=== PATIENT | male | born 1945 | race Caucasian/White ===

== ENCOUNTER 2017-08-17 11:31 | Day surgery (SDC) | payer MEDICARE, OTHER ==
[2017-08-16 12:15] VITALS: BMI 26.4
[2017-08-17] MEDS ORDERED: Midazolam HCl 2 mg/2 ml Vial ONE (13:46)
[2017-08-17] MEDS ORDERED: Lidocaine 1% PF 5 ML VIAL ONE (13:55)
[2017-08-17] MEDS ORDERED: ePHEDrine/0.9% NaCl/PF SYRINGE 50 mg/10 ml ONE (13:55)
[2017-08-17] MEDS ORDERED: Propofol 200 MG/20 ML VIAL ONE (13:55)
--- NOTE | 2017-08-17 15:55 | MRI ---
MR CERVICAL SPINE WITHOUT CONTRAST 08/17/17 INDICATION: Bilateral hand numbness for one month. COMPARISON: Radiograph dated 07/14/17. FINDINGS: Prevertebral soft tissues are normal appearing. The visualized posterior fossa is unremarkable. There is slight anterior translation of C2 on C3 which is likely degenerative in nature. There is mod erate and mild left facet joint degenerative change. There is left vertebral hypertrophy present. The re is mild right neural foraminal narrowing. At C3-4, There is a disc osteophyte complex with uncovertebral hypertrophy and facet joint degenerat dannielle change inducing severe left and moderate to severe right neural foraminal narrowing. At C4-5, there is anterior translation of C4 on C5. There is uncovertebral hypertrophy and facet join t degenerative change. Motion artifact heavily limits image detail in the axial images at this level. There is suspected severe bilateral neural foraminal narrowing, left greater than right due to uncov ertebral hypertrophy and facet joint degenerative change. At C5-6, there is a broad based bulge with uncovertebral hypertrophy and facet joint degenerative nova nge inducing severe bilateral neural foraminal narrowing and mild central canal narrowing. At C6-7, there is disc osteophyte complex with facet joint degenerative change inducing moderate bila teral neural foraminal narrowing and mild central canal narrowing. At C7-T1, there is mild anterior translation of C7 on T1. There is at least mild bilateral neural for aminal narrowing due to facet joint hypertrophy. IMPRESSION: 1. Multilevel neural foraminal narrowing demonstrated as detailed above. 2. Mild central canal narrowing seen at C5-6 and C6-7. POS: [facility]
== END 2017-08-17 16:15 | disposition home or self-care (01) ==
LOC: SDC/OP 11:31
PROVIDERS: ATTEND Neurological Surgery
DX: M50.00 Cervical disc disorder with myelopathy, unspecified cervical region (principal); M47.12 Other spondylosis with myelopathy, cervical region; M48.02 Spinal stenosis, cervical region; I10 Essential (primary) hypertension; I25.10 Atherosclerotic heart disease of native coronary artery without angina pectoris; F17.210 Nicotine dependence, cigarettes, uncomplicated; G56.00 Carpal tunnel syndrome, unspecified upper limb; Z79.82 Long term (current) use of aspirin; Z79.899 Other long term (current) drug therapy
CPT/HCPCS: 72141; J2001; J2250; J2704

== ENCOUNTER 2017-11-11 12:49 | Day surgery (SDC) | payer MEDICARE, OTHER ==
[2017-11-10 09:33] VITALS: BMI 26.4
--- NOTE | 2017-11-11 13:26 | HP ---
REASON FOR ADMISSION: Left carpal tunnel release, left ulnar nerve decompression with transposition. HISTORY OF PRESENT ILLNESS: Mr. 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 EMG nerve conduction studies revealed moderate to severe carpal tunnel and ulnar neuropathy at the elbow. The left arm is more symptomatic than the right and the EMG/nerve conduction studies support this. He is here for a decompression and transposition of the ulnar nerv e at the left elbow and carpal tunnel release on the left wrist. PAST MEDICAL HISTORY: Hypertension, hyperlipidemia, atherosclerosis including coronary artery diseas e, gastroesophageal reflux. PAST SURGICAL HISTORY: Carotid artery surgery, carotid stenting, coronary artery bypass graft, and l ens implants. MEDICATIONS: Include naproxen, folic acid, metoprolol, lisinopril, furosemide, Plavix, simvastatin, potassium chloride, and aspirin. ALLERGIES: No known drug allergies. SOCIAL HISTORY: Mr. Negrete was a smoker and continues to smoke at least for the last 20 years. He drinks 2-3 drinks of vodka every night. He is retired. He is . FAMILY HISTORY: Father is , colon cancer. Mother had cancer as well. REVIEW OF SYSTEMS: Otherwise negative. PHYSICAL EXAMINATION: GENERAL: Mr. Negrete is awake, alert. He is oriented. NEUROLOGIC: Cranial nerves are functioning well. His receptive and expressive language function are normal. His cognitive function is normal. Alternating rapid motions are performed rapidly and smoo thly. There is no truncal ataxia. There is some subjective hand weakness and numbness on both sides ; however, he has good strength against resistance. Reflexes are normal. The toes are downgoing. G ait is off balanced on tandem gait testing. IMAGING FINDINGS AND TEST RESULTS. Nerve conduction studies suggest a slowing of ulnar nerve conduct ion at the elbow and median nerve at the wrist. ASSESSMENT: Left ulnar neuropathy at the elbow, left carpal tunnel syndrome. PLAN: Decompression and transposition of the left ulnar nerve and decompression of left carpal tunne l. After surgery, he is to keep his arm elevated for the next 36 hours on Wednesday morning, 11/13/2017, dressings can be removed. Thereafter, he can shower. If soap and water get on the incision, should be patted dry. Aspirin can be restarted in 1 week and Plavix in 2 weeks after surgery. Follow up arrangements will be made by scheduling coordinators. Please give the copy of this admission history and physical with the discharge instructions highlight ed.
[2017-11-11 14:22] LABS: PTT 28.7 SEC (22.9-36.1); Prothrombin Time 13.4 SEC (12.0-14.7)
[2017-11-11] MEDS ORDERED: Lidocaine 1% PF 5 ML VIAL ONE (14:35)
[2017-11-11] MEDS ORDERED: PHENYLEPHRINE-NS 100 MCG/ML 10 ML SYRINGE ONE (14:35)
[2017-11-11] MEDS ORDERED: PROPOFOL 200 MG/20 ML VIAL ONE (14:35)
[2017-11-11] MEDS ORDERED: Ondansetron HCl/PF 4 MG/2 ML Vial ONE (14:35)
[2017-11-11 14:51] LABS: #Basophils 0.1 thou/uL (0.0-0.2); #Eosinphils 0.1 thou/uL (0.0-0.7); #Lymphocytes 1.7 thou/uL (1.20-3.40); #Monocytes 0.6 thou/uL (0.11-0.59); #Neutrophils 3.5 thou/uL (1.40-6.50); %Basophils 0.9 % (0.0-1.0); %Eosinophils 1.1 % (0.0-10.0); %Lymphocytes 28.4 % (21.0-51.0); %Monocytes 9.5 % (0.0-10.0); %Neutrophils 60.1 % (42.0-75.0); Hemoglobin 13.5 g/dL (14.0-18.0); MDiff Complete? YES; Macrocytosis SLIGHT = 6-15 cells (100X) (0-5/hpf); Mean Corpuscular HGB CONC 34.1 g/dL (32.0-36.0); Mean Corpuscular Hemoglobin 37.8 pg (27.0-31.0); Mean Platelet Volume 8.6 fL (7.4-10.4); PLT Morphology Comment Appears Decreased; Platelet Count 104 thou/uL (130-400); RBC Distribution Width 11.9 % (11.5-14.5); Red Blood Cell (RBC) Count 3.56 mill/uL (4.70-6.10); White Blood Cell (WBC) Count 5.9 thou/uL (4.8-10.8)
[2017-11-11] MEDS ORDERED: CEFAZOLIN/Water 2 GM/20 ML SYRINGE ONE ×2 (14:54→21:02)
[2017-11-11] MEDS ORDERED: Bacitracin Zinc Ointment 30 gm TUBE ONE (16:10)
[2017-11-11] MEDS ORDERED: Sodium Chloride 0.9% 10 ML ONE (16:10)
[2017-11-11] MEDS ORDERED: Lidocaine 1% (PF) 30 ML VIAL ONE (16:10)
[2017-11-11] MEDS ORDERED: Fentanyl 100 MCG/2 ML VIAL ONE (16:54)
[2017-11-11] MEDS ORDERED: Promethazine HCl 12.5 MG SUPP PR PRN (19:14)
[2017-11-11] MEDS ORDERED: Ondansetron HCl/PF 4 MG/2 ML Vial IVP PRN (19:14)
[2017-11-11] MEDS ORDERED: Acetaminophen/Codeine 30-300mg Tablet PO PRN ×2 (19:14)
[2017-11-11] MEDS ORDERED: Promethazine 25 MG TAB PO PRN (19:14)
[2017-11-11] MEDS ORDERED: Promethazine HCl 25 MG/ML VIAL IM PRN (19:14)
[2017-11-11] MEDS ORDERED: HYDROcodone/Acetaminophen 5/325 mg Tablet ONE (20:29)
[2017-11-11] MEDS ORDERED: CEFAZOLIN/Water 2 GM/20 ML SYRINGE SLOW IVP SCH (22:00)
--- NOTE | 2017-11-11 22:03 | OP ---
DATE OF PROCEDURE: 11/11/2017 SURGEON: Elizabeth Shearer M.D. GROUP UNDERWRITER: AMOS Sauer. PREOPERATIVE INDICATION: Prevent neurological deterioration. PREOPERATIVE DIAGNOSES: Ulnar neuropathy at the elbow and carpal tunnel syndrome, left side. POSTOPERATIVE DIAGNOSES: Ulnar neuropathy at the elbow and carpal tunnel syndrome, left side. OPERATIVE PROCEDURE: Decompression with subcutaneous transposition of left ulnar nerve at the elbow, carpal tunnel release, left wrist. PREOPERATIVE MEDICATION: Ancef 2 grams IV. DRAIN NUMBER: Zero. DRAIN TYPE: None. PROCEDURE IN DETAIL: The patient was brought to the operating room. General LMA anesthesia was stormy eze. We cleansed the arm and plantar curvilinear incision over the cubital tunnel extending into the forearm and proximally into the arm as well as an incision from the distal palmar crease into the pa lm in line with the webspace between the ring and middle finger. Under the planned incisions, we inf used local anesthetic. The entire arm was sterilely prepped and draped. We started with the elbow s urgery and opened our curvilinear incision and controlled the bleeding with bipolar cautery. We diss ected sharply to the cubital tunnel and found the ulnar nerve. We placed a vessel loop around it and dissected proximally and distally. We dissected enough nerve, so that could be easily transposed ov er the elbow. We had to cut the intermuscular septum off the proximal portion of the elbow joint to allow for smooth transposition. Distally we made a small notch in the fascia of the flexor carpi uln kaylen for a smooth transition back to the wilton side for the ulnar nerve. We irrigated copiously wit h bacitracin irrigation. We held the nerve in transposed position by tacking down subcutaneous fat t o the medial epicondyle and placed a Keasbey 4 dissector through the transposed tunnel we had create d and there was no impingement. We extended and flexed the arm and the nerve looked quite soft and s upple of the unit for its entire root at the elbow. We irrigated once again with bacitracin irrigati on and closed this wound in anatomic layers. At the wrist, we opened our incision with a fresh 15 bl caroline. We controlled bleeding with bipolar cautery. We sectioned the transverse carpal ligament. The carpal ligament was exceedingly thick. It extended distally into the palm and merged with the alonso r aponeurosis and proximally into the arm and along the entire course of the ligament and aponeurotic structures, there was compression of the median nerve. We had to open distally into the palm quite a distance and proximally into the forearm quite a distance to ensure the median nerve had adequate d ecompression. There was flaky granulomatous type tissue in the carpal tunnel, suggestive of previous injections. We irrigated copiously with bacitracin irrigation. We ensured that hemostasis was exce llent. We closed the skin with 4-0 Prolene in a vertical mattress fashion. Over both incisions, we left sterile dressings. We wrapped the arm in an Jay wrap and placed him in this line. This was a c lean case and no contamination.
== END 2017-11-11 21:30 | disposition home or self-care (01) ==
LOC: SDC 12:49
PROVIDERS: ATTEND Neurological Surgery
PROC: 01N50ZZ Release Median Nerve, Open Approach (ICD-10-PCS; principal; 2017-11-11)
PROC: 01N40ZZ Release Ulnar Nerve, Open Approach (ICD-10-PCS; 2017-11-11)
DX: G56.02 Carpal tunnel syndrome, left upper limb (principal); G56.22 Lesion of ulnar nerve, left upper limb; I10 Essential (primary) hypertension; E78.5 Hyperlipidemia, unspecified; I25.10 Atherosclerotic heart disease of native coronary artery without angina pectoris; K21.9 Gastro-esophageal reflux disease without esophagitis; F17.200 Nicotine dependence, unspecified, uncomplicated; Z79.82 Long term (current) use of aspirin; Z79.02 Long term (current) use of antithrombotics/antiplatelets; Z79.899 Other long term (current) drug therapy; Z95.1 Presence of aortocoronary bypass graft
CPT/HCPCS: 36415; 85025; 85610; 85730; 93005; 93010; A4216; J2001; J2405; J2704; J3010; J3490

== ENCOUNTER 2018-02-13 03:14 | Inpatient (IN) | payer MEDICARE, OTHER ==
[2018-02-13 03:38] LABS: Bicarbonate (HCO3v) 6.9 mmol/L (1.0-85.0); CO2 Tension (PvCO2) 31.3 mmHg (41.0-51.0); Hemoglobin - Calc 10.2 g/dL (12.0-18.0); Lactate 17.23 mmol/L (0.50-2.20); O2 Tension (PvO2) 38.6 mmHg (35.0-45.0); Potassium 3.8 mmol/L (3.4-4.7); T. Carbon Dioxide 7.8 mmol/L (1.0-85.0); pH (Venous) 6.948 (7.35-7.45); vO2 Saturation-calc 44.7 % (94-98)
[2018-02-13 03:53] LABS: INR-International Normal Ratio 1.4; PTT 31.2 SEC (22.9-36.1); Prothrombin Time 16.8 SEC (12.0-14.7)
[2018-02-13 03:55] LABS: Hemoglobin 10.3 g/dL (14.0-18.0); Mean Corpuscular HGB CONC 32.9 g/dL (32.0-36.0); Mean Corpuscular Hemoglobin 38.7 pg (27.0-31.0); RBC Distribution Width 11.9 % (11.5-14.5); Red Blood Cell (RBC) Count 2.66 mill/uL (4.70-6.10); White Blood Cell (WBC) Count 11.4 thou/uL (4.8-10.8)
[2018-02-13 04:09] LABS: #Lymphocytes 1.5 thou/uL (1.20-3.40); #Monocytes 0.7 thou/uL (0.11-0.59); #Neutrophils 9.1 thou/uL (1.40-6.50); %Basophils 0.2 % (0.0-1.0); %Eosinophils 0.2 % (0.0-10.0); %Lymphocytes 13.2 % (21.0-51.0); %Monocytes 5.9 % (0.0-10.0); %Neutrophils 80.5 % (42.0-75.0); MDiff Complete? YES; Macrocytosis SLIGHT = 6-15 cells (100X) (0-5/hpf); Mean Platelet Volume 9.3 fL (7.4-10.4); PLT Morphology Comment Appears Decreased; Platelet Count 113 thou/uL (130-400)
[2018-02-13 04:13] LABS: ALT (SGPT) 11 U/L (8-55); AST (SGOT) 32 U/L (5-34); Albumin 3.6 g/dL (3.4-4.8); Alkaline Phosphatase 61 U/L (40-150); BUN (Urea Nitrogen) 38 mg/dL (8.4-25.7); Bilirubin, Total 0.9 mg/dL (0.2-1.2); CK (CPK) 488 U/L (30-200); Calc. Creatinine Clearance 0 mL/min (70-130); Calcium 9.1 mg/dL (7.8-10.44); Chloride 102 mmol/L (98-107); Estimated GFR-MDRD 23; Globulin 2.8 g/dL (2.4-3.5); Glucose 188 mg/dL (83-110); Lipase 121 U/L (8-78); Magnesium 2.5 mg/dL (1.6-2.6); Potassium 4.2 mmol/L (3.5-5.1); Protein, Total 6.4 g/dL (5.8-8.1); Sodium 142 mmol/L (136-145)
[2018-02-13 04:14] LABS: Acetaminophen Less than 6.0 mcg/mL (10.0-30.0); Alcohol 106 mg/dL (Less than 10); Salicylate Less than 8.0 mg/dL (15.0-30.0)
[2018-02-13 04:17] LABS: Troponin I 0.029 ng/mL (< 0.028)
[2018-02-13] MEDS ORDERED: Calcium Chloride 1 GM/10 ML Abboject SYRINGE ONE (04:17)
[2018-02-13] MEDS ORDERED: Sodium Bicarb 50 MEQ/50 ML Abboject 8.4% SYRINGE ONE (04:17)
[2018-02-13 04:18] LABS: Carbon Dioxide Less than 8 mmol/L (23-31)
[2018-02-13] MEDS ORDERED: Lidocaine 1% w/Epinephrine 1:100K 20 ML VIAL ONE (04:28)
[2018-02-13] MEDS ORDERED: Dextrose 50% Abboject 50 ML SYRINGE SLOW IVP PRN (05:13)
[2018-02-13] MEDS ORDERED: Ondansetron HCl/PF 4 MG/2 ML Vial IVP PRN (05:13)
[2018-02-13] MEDS ORDERED: Ondansetron ODT 4 MG TAB PO PRN (05:13)
[2018-02-13] MEDS ORDERED: Dextrose 5% in Water 1,000 ML IV PRN (05:13)
[2018-02-13 05:15] LABS: Bilirubin Negative (Negative); Blood, Urine Trace (Negative); Clarity CLEAR (Clear); Glucose, Urine (Dipstick) Negative (Negative); Leukocyte Negative (Negative); Nitrite Negative (Negative); Protein, Urine (Dipstick) Negative (Neg-Trace); Specific Gravity, Urine 1.008 (1.002-1.036); Urobilinogen 0.2 mg/dL (0.2-1.0)
[2018-02-13 05:17] LABS: Bacteria/HPF None Seen HPF (None Seen); Pathc Cast-AUWi Flag 1.01 (0-2.49); RBC/HPF 0-3 HPF (0-3); Squamous Epithelial 0-3 HPF (0-3); WBC/HPF 0-3 HPF (0-3)
[2018-02-13 05:26] LABS: Hyaline Casts/LPF NONE SEEN LPF (0-3 Hyaline); Renal Epithelial 0-3 HPF (0-3); Transitional Epithelial NONE SEEN HPF (0-3)
[2018-02-13 05:27] LABS: Amphetamine Not Detected (NotDetected); Barbiturates Screen Not Detected (NotDetected); Benzodiazepine Screen Not Detected (NotDetected); Cocaine Metabolite Screen Not Detected (NotDetected); Medtox Control Line Valid? VALID (VALID); Medtox Reader # READER 4; Methadone Not Detected (NotDetected); Methamphetamine Not Detected (NotDetected); Opiate Screen Not Detected (NotDetected); Oxycodone Screen Not Detected (NotDetected); Phencyclidine (PCP) Not Detected (NotDetected); THC/Cannabinoid Screen Not Detected (NotDetected); Tricyclic Screen Not Detected (NotDetected)
[2018-02-13 05:46] LABS: Osmolality, Serum 341 mOsm/kg (280-295)
[2018-02-13] MEDS ORDERED: traMADol HCl 50 MG TAB PO PRN (05:50)
[2018-02-13] MEDS ORDERED: Acetaminophen 1,000 MG in Premix Bag 1 BAG IVPB SCH (06:00)
[2018-02-13 07:31] LABS: CKMB 4.5 ng/mL (0-6.6); Troponin I 0.035 ng/mL (< 0.028)
[2018-02-13 07:41] LABS: #Lymphocytes 0.5 thou/uL (1.20-3.40); #Monocytes 0.8 thou/uL (0.11-0.59); #Neutrophils 8.3 thou/uL (1.40-6.50); %Basophils 0.2 % (0.0-1.0); %Eosinophils 0.2 % (0.0-10.0); %Lymphocytes 5.3 % (21.0-51.0); %Monocytes 8.5 % (0.0-10.0); %Neutrophils 85.8 % (42.0-75.0); Anisocytosis SLIGHT = 6-15 cells (100X) (0-5/hpf); MDiff Complete? YES; Mean Corpuscular HGB CONC 35.1 g/dL (32.0-36.0); Mean Corpuscular Hemoglobin 37.6 pg (27.0-31.0); Mean Platelet Volume 8.4 fL (7.4-10.4); PLT Morphology Comment Appears Decreased; Platelet Count 107 thou/uL (130-400); RBC Distribution Width 15.8 % (11.5-14.5); White Blood Cell (WBC) Count 9.7 thou/uL (4.8-10.8)
[2018-02-13 07:45] VITALS: BMI 27.0
--- NOTE | 2018-02-13 07:53 | HP ---
DATE OF ADMISSION: 02/13/2018 ATTENDING PHYSICIAN: Dr. Bang. TRAUMA ACTIVATION: Level 1. HISTORY OF PRESENT ILLNESS: Mr. Savage Negrete is a 72-year-old male who presented to [facility] via EMS status post fall. Per report, the patient fell in his kitchen due to unknown cause with un known down time, but was able to crawl to his phone and called EMS. There was a large amount of bloo d at the scene. The patient had obvious scalp laceration with an initial blood pressure of 71/47 and heart rate of 124. A level 1 trauma was activated. The patient received a liter of fluid, which im proved his blood pressure to 104/70. At that time, he was taken to the CT scan and evaluated. CT of the head was negative for acute intracranial abnormality. The patient had no other external markers or signs of trauma and a fast was negative. While in CT scan, his blood pressure dropped again and he was transfused 2 units of packed red blood cells and a pack of platelets. His blood pressure impr jarred into the 120s-130s with a heart rate in the low teens. Of note, the patient does have a history of atrial fibrillation with rapid ventricular response. The patient was initially unable to partici barragan in the physical exam and history, as mentation improved was able to give further history. ALLERGIES: The patient denies. HOME MEDICATIONS: Unknown. PAST MEDICAL HISTORY: Significant for atrial fibrillation with rapid ventricular response, coronary artery disease, hypertension, and multiple falls with a possible syncopal episode approximately 2 yea rs ago. PAST SURGICAL HISTORY: PTCA, CABG, right carotid endarterectomy and bilateral eye surgery. SOCIAL HISTORY: The patient is a daily drinker, drinking ounce drinks of vodka in water. He i s a pack per day smoker x30 years. Denies illicit drug use. Lives alone and typically ambulates ind ependently. FAMILY HISTORY: Significant for father with coronary artery disease and colon cancer. Moth er is bone cancer. Sister with breast cancer. REVIEW OF SYSTEMS: A 10-point review of systems was performed. Specifically, the patient denied fev ers, chills, nausea, vomiting, dizziness, headaches, chest pain, shortness of breath, palpitations, a bdominal pain, change in bladder habits, hematuria, dysuria, hematochezia, melena, hematemesis. The patient did endorse overall generalized increasing weakness, which he attributes to increasing age. PHYSICAL EXAMINATION: GENERAL: Elderly appearing male with an extensive amount of dry blood on his body. No acute distres s. HEAD: With right periorbital ecchymosis. There is a hematoma and a 2 cm laceration above the right eyebrow. There is an abrasion and a large amount of swelling and bruising of the upper lip. Eyes, pupils are PERRLA. Extraocular movements are intact. Mouth: There is dried blood, but dentat ion appears intact and no obvious intraoral laceration. NECK: Supple. Trachea is midline. CHEST: Nontender to palpation. Normal work of breathing, symmetric rise. CARDIOVASCULAR: Irregularly irregular. Tachycardic. No obvious murmurs, rubs or gallops. ABDOMEN: Atraumatic, soft, nontender, nondistended. MUSCULOSKELETAL: Pelvis is stable. BACK: Within normal limits. EXTREMITIES: Right shoulder, extensive bruising of the bilateral upper extremities. There is a righ t knee and thigh bruise in the right lower extremity. Left lower extremity within normal limits. NEUROLOGIC: Initial GCS 14, now 15. No focal deficit is noted. LABORATORY DATA: WBC 11.4, hemoglobin 10.3, hematocrit 31.3, platelet count 113. INR is 1.4, PT 16. 8. Sodium 142, potassium 4.2, chloride 102, carbon dioxide less than 8, BUN 38, creatinine 2.69, glu cose 188. Lactic acid 24.7. Serum osmol 341. CK 488, CK-MB 4.0. Troponin 0.029. Cortisol is 37.1 . VBG: pH 6.948, CO2 of 31.3, bicarbonate 6.9, base excess negative 24. RADIOLOGIC FINDINGS: CT of the brain was negative for acute intracranial abnormality, left nasal bon e fracture and a frontal scalp hematoma. CT of the C-spine was negative for acute fracture or disloc ation. CT of the face demonstrated left nasal bone fracture with obvious swelling of the upper lip a nd nasal tissues. EKG with atrial fibrillation, RVR and a QTC of 531. ASSESSMENT: 1. Status post unwitnessed fall, unknown downtime, question of possible syncope. 2. Hemorrhagic shock. 3. Acute blood loss anemia. 4. Qualitative platelet dysfunction. 5. Severe metabolic acidosis. 6. Lactic acidosis. 7. Acute renal failure. 8. Hypocalcemia. 9. Elevated CK. 10. Mildly elevated troponin, likely demand ischemia. 11. Elevated lipase. 12. Chronic alcohol abuse. 13. Tobacco abuse. 14. Atrial fibrillation with rapid ventricular response. 15. Coronary artery disease, history of PTCA and coronary artery bypass graft. 16. Peripheral vascular disease, status post right carotid endarterectomy. 17. History of hypertension, now hypotensive. PLAN: Admit to ICU. Scalp laceration to be repaired in the ER. Two grams of calcium chloride, now two amps of bicarbonate. Bicarbonate drip at 125 mL. Urine output as resuscitation. Rechec k H&H. Recheck lactic acid. Recheck chemistry later this afternoon. Serax for withdrawal prophylax is, multivitamins. Cardiology consult for elevated troponins, atrial fibrillation with RVR in the se tting of questionable syncopal event. The patient has been seen and evaluated with Dr. Bang. Renae ns for admission were discussed with the patient at bedside. All questions were answered at the time of this dictation.
[2018-02-13] MEDS: Sodium Bicarbonate 150 MEQ in Dextrose 5% in Water 1,000 ML IV SCH ×2 (08:51→14:07)
[2018-02-13 08:55] LABS: Actual Bicarbonate (HCO3a) 12.1 mEq/L (22-28); Base Excess (BEa) -10.9 mEq/L (-2.0 to +3.0); CO2 Tension 19.9 mmHg (35.0-45.0); O2 Tension (PaO2) 91.6 mmHg (> 70.0)
[2018-02-13 08:56] LABS: ALV-art Gradient 33.255 (0-20); Calcium, Ionized 1.18 mmol/L (1.12-1.30); Carboxyhemoglobin (COHb) 0.6 gm% (0.0-3.0); Hemoglobin (Hb) 9.5 g/dL (14.0-18.0); Potassium - ABG Lab 4.2 mmol/L (3.70-5.30); Puncture Site RBA
[2018-02-13] MEDS: Famotidine 20 MG TAB PO SCH (09:05)
[2018-02-13] MEDS: Multivitamin W/ Minerals 1 TAB PO SCH (09:05)
[2018-02-13] MEDS: Folic Acid 1 MG TAB PO SCH (09:05)
[2018-02-13 09:17] LABS: CKMB 6.3 ng/mL (0-6.6); Troponin I 0.065 ng/mL (< 0.028)
[2018-02-13 09:24] LABS: Lactic Acid 13.1 mmol/L (0.5-2.2)
--- NOTE | 2018-02-13 09:50 | CT ---
PRELIMINARY REPORT/[facility]/EMERGENTY AFTER-HOURS PROCEDURE CT Head Without Intravenous Contrast EXAM DATE/TIME: Exam ordered 02/13/2018 3:50 AM CLINICAL HISTORY: 72 years old, male; Injury or trauma; Fall; Initial encounter; Abrasion; Forehead; Patient HX: Walter rowland presents for evaluation of fall TECHNIQUE: Axial computed tomography images of the head/brain without intravenous contrast. COMPARISON: No relevant prior studies available. FINDINGS: Brain: Normal. No hemorrhage. No significant white matter disease. No edema. Ventricles: Normal. No ventriculomegaly. Bones/joints: There is LEFT nasal bone fracture with associated soft tissue swelling as above. Soft tissues: There is marked maxillary/lip soft tissue swelling. There is 3 x 1 cm frontal scalp hem atoma. Sinuses: Unremarkable as visualized. No acute sinusitis. Mastoid air cells: Unremarkable as visualized. No mastoid effusion. IMPRESSION: 1. No acute intracranial hemorrhage. 2. There is LEFT nasal bone fracture with associated soft tissue swelling as above. 3. Frontal scalp hematoma. Thank you for allowing us to participate in the care of your patient. Dictated and Authenticated by: Rafa Jc MD 02/13/2018 4:17 AM Central Time ([place] & [place]) FINAL REPORT CT BRAIN WITHOUT CONTRAST: Date: 02/13/18 IMPRESSION: I agree with the preliminary report provided by [facility]. There is a prominent right frontal scalp contus ion. There is generalized cerebral and cerebellar atrophy. There is mild chronic small vessel white m atter ischemic change. No acute infarct is present. There is an acute left nasal bone fracture. POS: [facility]
--- NOTE | 2018-02-13 09:52 | CT ---
PRELIMINARY REPORT/[facility]/EMERGENTY AFTER-HOURS PROCEDURE CT Cervical Spine Without Intravenous Contrast EXAM DATE/TIME: Exam ordered 02/13/2018 3:56 AM CLINICAL HISTORY: 72 years old, male; Injury or trauma; Fall; Initial encounter; Abrasion; Patient HX: Patient presents for evaluation of fall, from standing TECHNIQUE: Axial computed tomography images of the cervical spine without intravenous contrast. COMPARISON: No relevant prior studies available. FINDINGS: Vertebrae: No acute cervical spine fracture is demonstrated. The cervical spine demonstrates marked d egenerative changes at multiple levels with spondylosis and facet arthropathy and degenerative myriam listhesis of C4 and C5 and C7 on T1. Mild to moderate spinal canal stenosis. Discs/spinal canal/neural foramina: The vertebral foramen are grossly intact. Soft tissues: Normal. Lung apices: Unremarkable as visualized. IMPRESSION: 1. No acute cervical spine fracture is demonstrated. 2. Marked multilevel cervical spine degenerative changes as above. Thank you for allowing us to participate in the care of your patient. Dictated and Authenticated by: Rafa Jc MD 02/13/2018 4:30 AM Central Time ([place] & [place]) FINAL REPORT CT CERVICAL SPINE WITHOUT CONTRAST: Date: 02/13/18 INDICATION: History of fall and neck pain. IMPRESSION: I agree with the preliminary report provided by [facility]. No acute fracture or subluxation is evident. Th ere is severe multilevel spondylosis of the cervical spine. Stable since prior dated 05/05/16. Slight anterior translation of C4 on C5 with retrolisthesis of C5 on C6, stable. Cervical junction appears within normal limits. There is mild paraseptal emphysema involving the lung apices. Craniocervical ju nction appears within normal limits. POS: [facility]
--- NOTE | 2018-02-13 09:55 | CT ---
PRELIMINARY REPORT/[facility]/EMERGENTY AFTER-HOURS PROCEDURE CT Maxillofacial Without Intravenous Contrast EXAM DATE/TIME: Exam ordered 02/13/2018 4:01 AM CLINICAL HISTORY: 72 years old, male; Injury or trauma; Fall; Initial encounter; Abrasion; Forehead; Patient HX: Walter rowland presents for evaluation of fall, from standing TECHNIQUE: Axial computed tomography images of the face without intravenous contrast. COMPARISON: No relevant prior studies available. FINDINGS: Bones/joints: There is fracture of the LEFT nasal bone with marked overlying soft tissue swelling inv olving the nasal soft tissues, and upper lip. The streak artifact limiting evaluation of the maxilla due to patient's mouth hardware. No obvious fracture is demonstrated. Soft tissues: There is a 4 x 1 cm frontal scalp hematoma. Orbits: Normal. Sinuses: Normal. No air-fluid levels. IMPRESSION: 1. There is a 4 x 1 cm frontal scalp hematoma. 2. There is fracture of the LEFT nasal bone with marked overlying soft tissue swelling involving the nasal soft tissues, and upper lip. Findings were discussed with HALEY SHEPARD at 02/13/2018 4:43 AM CDT. Thank you for allowing us to participate in the care of your patient. Dictated and Authenticated by: Rafa Jc MD 02/13/2018 4:43 AM Central Time ([place] & [place]) FINAL REPORT FACIAL BONES CT: Date: 02/13/18 IMPRESSION: I agree with the preliminary report provided by [facility]. There is a prominent right scalp contusion. The re is a comminuted left nasal bone fracture. No additional fracture is grossly evident. POS: [facility]
--- NOTE | 2018-02-13 10:18 | RAD ---
AP PELVIS: Date: 02/13/18 HISTORY: Fall with pelvic pain. FINDINGS: The pelvic ring appears intact without evidence of fracture. SI joints are symmetric. No diastasis of the symphysis. Arthritic changes of the lumbar spine and hips are noted. Extensive vascular calcific ations. IMPRESSION: No acute injury. POS: [facility]
[2018-02-13] MEDS: Oxazepam 10 MG CAP PO SCH ×4 (10:24→22:11)
--- NOTE | 2018-02-13 10:29 | RAD ---
PORTABLE CHEST: Date: 02/13/18 HISTORY: Trauma with diffuse pain. COMPARISON: 05/05/16. FINDINGS: Heart size and mediastinum are within normal limits with postop sternotomy change. Lungs are clear of infiltrates. No fracture is identified. IMPRESSION: No acute findings. POS: [facility]
--- NOTE | 2018-02-13 10:37 | RAD ---
RIGHT KNEE 2 VIEWS: Date: 02/13/18 HISTORY: Fall. FINDINGS: Vascular calcifications are seen. There are no signs of fracture, dislocation, or joint effusion. IMPRESSION: No evidence of acute injury. POS: [facility]
--- NOTE | 2018-02-13 10:39 | RAD ---
RIGHT SHOULDER 3 VIEWS: Date: 02/13/18 HISTORY: Shoulder pain status post fall. FINDINGS: There are arthritic changes of the AC joint and some mild arthritic changes of the glenohumeral joint . There are no signs of fracture or dislocation. IMPRESSION: No evidence of fracture. POS: [facility]
--- NOTE | 2018-02-13 10:49 | RAD ---
3 VIEWS LEFT HAND: Date: 02/13/18 INDICATION: Follow-up left hand swelling. FINDINGS: There is periarticular erosive change involving the small digit DIP joint with prominent soft tissue swelling. Differential considerations include a monoarticular gouty arthropathy or possibly septic ar thritis. An erosive osteoarthropathy cannot be entirely excluded. There is diffuse osteopenia and sca ttered degenerative change. There is some mild nonspecific subchondral cyst-like abnormalities obtain ed involving the carpus and radial styloid. Rheumatoid arthritis could produce findings similar to th is. No definite acute fracture is evident. IMPRESSION: Prominent periarticular erosive change with soft tissue swelling involving the left small finger DIP joint may reflect sequelae of gout, CPPD deposition disease, septic arthritis, or possibly an atypica l erosive osteoarthropathy. POS: [facility]
[2018-02-13] MEDS ORDERED: Acetaminophen 500 MG TAB PO PRN (10:59)
--- NOTE | 2018-02-13 11:55 | CON ---
DATE OF CONSULTATION: 02/13/2018 REASON FOR CONSULTATION: Possible syncope. PRIMARY ELECTRICAL ESTIMATOR: Alix Calderon M.D. HISTORY OF PRESENT ILLNESS: Mr. Negrete is a very pleasant 72-year-old white gentleman who comes to the hospital for a fall. He was at home and then he suddenly just woke up on the floor with a lot o f blood around him. He managed to crawl to the phone and dial 911. When EMS arrived, there was a lo t of blood around him. His blood pressure was 70s/40s. He was given some IV normal saline and after a couple liters, blood pressure responded to the low 100s/60s. His was brought in. He had a lot of lacerations which were sutured and he has just a scalp hematoma, but no intracerebral hemorrhage. C ardiology is being consulted as it sounds like this is syncope. He had a similar spell about 2 years ago in 2016. He is followed by Dr. Calderon for coronary artery disease. He has had bypass [place] [address] Lynne. PAST MEDICAL HISTORY: 1. Coronary artery disease, status post CABG x4 [place] [address] Lynne. 2. Atrial fibrillation. 3. Hypertension. 4. Multiple falls in the past. PAST SURGICAL HISTORY: 1. CABG x4 as above. 2. Right carotid endarterectomy. 3. Bilateral eye surgery. SOCIAL HISTORY: He drinks approximately a gallon of vodka every week. Pack a day smoker, no drug us e. Lives alone. FAMILY HISTORY: Noncontributory for his case. OUTPATIENT MEDICATIONS: 1. Potassium chloride 20 mEq a day. 2. Metoprolol tartrate 25 mg daily. 3. Lisinopril 5 mg a day. 4. Lasix 40 mg a day. 5. Folic acid. 6. Plavix 75 mg a day. 7. Aspirin 81 a day. 8. Simvastatin 20 mg at bedtime. ALLERGIES: No known drug allergies. REVIEW OF SYSTEMS: Twelve point review of systems was done and is all negative unless stated in the history of present illness. PHYSICAL EXAMINATION: VITAL SIGNS: Temperature 97.9, pulse 90, respiration rate 23, satting 99% on room air, blood pressur e 131/67. GENERAL: Awake, alert, oriented x3, in no distress. HEENT: Swollen nose, upper lip and right cheek bone. NECK: Supple, no JVD. LUNGS: Lungs are clear. CARDIOVASCULAR: S1, S2, no S3, S4. Irregularly irregular heart rate. ABDOMEN: Soft, positive bowel sounds. EXTREMITIES: No edema. SKIN: Warm and dry. LABORATORY WORK: Reviewed. White count of 11, hemoglobin 10.3, hematocrit 31, platelet count of 113 . Coags were normal. ABG was reviewed. Chemistries were reviewed. Lactic acid was 17 down to 13. Troponin was 0.03 and 0.06. Cortisol was normal. Creatinine at 2.5 with BUN of 31. GFR of 25, pot assium was 3.8, sodium 141. EKG was reviewed, AFib. Telemetry was reviewed and atrial fibrillation, heart rate in the 90s. ASSESSMENT AND PLAN: 1. Syncope. 2. Atrial fibrillation. 3. Coronary artery disease, stable. 4. Mildly elevated troponins, likely demand ischemia from fall and bleeding and hypotension. PLAN: 1. He will need some monitoring to make sure he is not having tachybrady syndrome. He will be a can didate for a [employer] implantable loop recorder. He is agreeable to this. We will have Dr. Calderon put it in once she comes back on Wednesday. 2. Continue his home medications. 3. May hold Plavix and aspirin until his bleeding issues are resolved. Restart once adequate from t he trauma team point of view. 4. No risk stratification for his mildly elevated troponins is more likely this is related to demand ischemia. Thank you for letting us participate in the care of your patient. We will follow.
[2018-02-13] MEDS ORDERED: Sodium Chloride 0.9% 500 ML IVPB SCH (14:15)
[2018-02-13 15:02] LABS: Hemoglobin 9.3 g/dL (14.0-18.0); Platelet Count 99 thou/uL (130-400)
[2018-02-13 15:09] LABS: Anion Gap 14 mmol/L (10-20); BUN (Urea Nitrogen) 41 mg/dL (8.4-25.7); Calc. Creatinine Clearance 32 mL/min (70-130); Calcium 9.6 mg/dL (7.8-10.44); Carbon Dioxide 30 mmol/L (23-31); Chloride 99 mmol/L (98-107); Estimated GFR-MDRD 24; Glucose 169 mg/dL (83-110); Phosphorus 3.2 mg/dL (2.3-4.7); Potassium 4.2 mmol/L (3.5-5.1); Sodium 139 mmol/L (136-145)
[2018-02-13 15:11] LABS: Lactic Acid 2.6 mmol/L (0.5-2.2)
[2018-02-13] MEDS: Sodium Chloride 0.9% 1,000 ML IV SCH ×2 (16:37→22:12)
[2018-02-14] MEDS: Sodium Chloride 0.9% 1,000 ML IV SCH ×2 (04:55→11:27)
[2018-02-14] MEDS: Oxazepam 10 MG CAP PO SCH ×3 (04:56→23:41)
[2018-02-14 05:18] LABS: #Eosinphils 0.1 thou/uL (0.0-0.7); #Lymphocytes 1.2 thou/uL (1.20-3.40); #Monocytes 0.6 thou/uL (0.11-0.59); #Neutrophils 5.8 thou/uL (1.40-6.50); %Basophils 0.2 % (0.0-1.0); %Eosinophils 0.7 % (0.0-10.0); %Lymphocytes 15.4 % (21.0-51.0); %Monocytes 7.5 % (0.0-10.0); %Neutrophils 76.3 % (42.0-75.0); Hemoglobin 8.4 g/dL (14.0-18.0); Mean Corpuscular Hemoglobin 37.1 pg (27.0-31.0); Platelet Count 77 thou/uL (130-400); RBC Distribution Width 15.8 % (11.5-14.5); Red Blood Cell (RBC) Count 2.27 mill/uL (4.70-6.10); White Blood Cell (WBC) Count 7.6 thou/uL (4.8-10.8)
[2018-02-14 05:38] LABS: Anion Gap 14 mmol/L (10-20); BUN (Urea Nitrogen) 37 mg/dL (8.4-25.7); CK (CPK) 495 U/L (30-200); Calc. Creatinine Clearance 37 mL/min (70-130); Calcium 8.6 mg/dL (7.8-10.44); Carbon Dioxide 26 mmol/L (23-31); Chloride 102 mmol/L (98-107); Estimated GFR-MDRD 28; Glucose 114 mg/dL (83-110); Lipase 21 U/L (8-78); Magnesium 1.6 mg/dL (1.6-2.6); Phosphorus 2.8 mg/dL (2.3-4.7); Sodium 138 mmol/L (136-145)
[2018-02-14] MEDS: Multivitamin W/ Minerals 1 TAB PO SCH (08:46)
[2018-02-14] MEDS: Famotidine 20 MG TAB PO SCH (08:46)
[2018-02-14] MEDS: Folic Acid 1 MG TAB PO SCH (08:46)
[2018-02-14] MEDS ORDERED: Oxazepam 10 MG CAP PO SCH (16:45)
--- NOTE | 2018-02-14 19:14 | PRG ---
DATE OF SERVICE: 02/14/2018 SUBJECTIVE: Mr. Negrete is a 72-year-old man with history of chronic alcoholism. The patient was a dmitted yesterday following an apparent fall where he sustained a scalp laceration with profound acut e blood loss anemia complicated by acute lactic acidosis. He did also develop acute kidney injury. Initially urinary output was marginal. The patient received a large volume fluid resuscitation in ad dition to blood transfusion. This morning, his urinary output has improved to greater than 0.5 mL pe r kilogram per hour. The patient is tolerating oral intake. He is on no vasopressor or inotropic whitney pport. OBJECTIVE: VITAL SIGNS: Vital signs this morning includes blood pressure 116/61, pulse was noted at 116 and irr egular, respiratory rate 21, maximum temperature in the last 24 hours is 97.8 degrees Fahrenheit, and oxygen saturation 100% on room air. HEENT: Stable scalp laceration. Pupils equal, round, reactive to light and accommodation. Extraocu lar muscles are intact bilaterally. He has no sclerae icterus present. HEART: Reveals irregular rate and irregular rhythm. LUNGS: Clear to auscultation bilaterally. Breathing is regular and unlabored. ABDOMEN: Soft, nontender, nondistended. Bowel sounds in all four quadrants appear normoactive. Mi er and spleen remain nonpalpable below costal margin. EXTREMITIES: Reveals 2+ radial and pedal pulses bilaterally. He has no ankle edema present. NEUROLOGIC: Reveals no focal deficits present. LABORATORY DATA: This morning includes a CBC with 7600 white blood cells, hemoglobin and hematocrit stable at 8.4 and 24.1 respectively. Platelet count is also stable at 77,000. Metabolic profile: S odium 138, potassium is 4.0, chloride is 102, bicarbonate 26, BUN is 37, creatinine is improving 2.27 in contrast to 2.6 yesterday. Glucose is 114. IMPRESSION: 1. Post-injury day #1, status post ground level fall. 2. Acute blood loss anemia, stable. 3. Resolving acute kidney injury. PLAN: 1. Escamilla catheter will be discontinued. I will encourage oral intake. 2. Increase diet as tolerated. 3. The patient will be transferred to a general surgical floor where we will continue with physical and occupational therapy in anticipation for discharge home tomorrow if the patient remains hemodynam ically stable, especially if his urinary output continues to remained stable with resolving acute kid raina injury. Above findings and plan discussed with the patient, who indicates understanding of the information gi meenu. I have answered his questions.
[2018-02-14] MEDS ORDERED: Metoprolol Tartrate 5 MG/5 ML VIAL IVP PRN (20:44)
[2018-02-15] MEDS: Sodium Chloride 0.9% 1,000 ML IV SCH (01:35)
[2018-02-15] MEDS: Oxazepam 10 MG CAP PO SCH ×4 (05:34→19:32)
[2018-02-15 07:52] VITALS: BP 127/63; TEMP 98
[2018-02-15] MEDS: Multivitamin W/ Minerals 1 TAB PO SCH (09:08)
[2018-02-15] MEDS: Folic Acid 1 MG TAB PO SCH (09:08)
[2018-02-15] MEDS: Famotidine 20 MG TAB PO SCH (09:08)
[2018-02-15 14:34] LABS: Anion Gap 9 mmol/L (10-20); BUN (Urea Nitrogen) 25 mg/dL (8.4-25.7); Calc. Creatinine Clearance 52 mL/min (70-130); Calcium 8.7 mg/dL (7.8-10.44); Carbon Dioxide 26 mmol/L (23-31); Chloride 105 mmol/L (98-107); Estimated GFR-MDRD 42; Glucose 116 mg/dL (83-110); Magnesium 1.8 mg/dL (1.6-2.6); Phosphorus 2.6 mg/dL (2.3-4.7); Sodium 136 mmol/L (136-145)
[2018-02-15 15:15] LABS: #Lymphocytes 0.6 thou/uL (1.20-3.40); #Monocytes 0.5 thou/uL (0.11-0.59); #Neutrophils 4.6 thou/uL (1.40-6.50); %Basophils 0.1 % (0.0-1.0); %Eosinophils 0.6 % (0.0-10.0); %Lymphocytes 10.5 % (21.0-51.0); %Monocytes 9.1 % (0.0-10.0); %Neutrophils 79.8 % (42.0-75.0); Hemoglobin 8.8 g/dL (14.0-18.0); Mean Corpuscular HGB CONC 34.8 g/dL (32.0-36.0); Mean Corpuscular Hemoglobin 37.2 pg (27.0-31.0); Mean Platelet Volume 9.7 fL (7.4-10.4); Platelet Count 99 thou/uL (130-400); RBC Distribution Width 15.2 % (11.5-14.5); Red Blood Cell (RBC) Count 2.36 mill/uL (4.70-6.10); White Blood Cell (WBC) Count 5.8 thou/uL (4.8-10.8)
--- NOTE | 2018-02-15 16:45 | PDOC.CTH ---
Cardiology Progress Note - Subjective Pt. seen and eval. by me. He denies any cardiac complaints. He is s/p a fall which is not uncommon for him. He is a halfway alcoholic and refuses to stop drinking. He has a history of atrial fibrillation and has not been placed on OAC due to the ETOH abuse and falls. - Objective Vital Signs Temp Pulse Resp BP Pulse Ox 02/15/18 08:00 98.0 F 81 16 95 02/15/18 07:51 98.0 F 81 16 127/63 95 02/15/18 05:00 104 H Weight 197 lb 12.074 oz 02/14/18 02/15/18 02/16/18 06:59 06:59 06:59 Intake Total 5329 3635 Output Total 740 910 Balance 4589 2725 - Physical Examination General/Neuro: alert & oriented x3, other: (facial lacerations,sutured.) Neck: no JVD present Lungs: CTA Heart: other: (irreg/irreg.) Abdomen: NT/ND - Labs Result Diagrams: 02/15/18 14:04 02/15/18 14:04 Troponin/CKMB CK-MB (CK-2) 6.3 ng/mL (0-6.6) 02/13/18 08:37 Troponin I 0.065 ng/mL (< 0.028) H 02/13/18 08:37 - Assessment/Plan 1. Atrial fibrillation. Continue rate control. He is not a candidate for OAC. 2. Chronic ETOH: this is likely the etiology of his fall. His ETOH level was 106. 3. CAD: stable. From a cardiac standpoint I do not have anything else to offer. i will sign off.
[2018-02-15 18:00] LABS: Anion Gap 11 mmol/L (10-20); BUN (Urea Nitrogen) 25 mg/dL (8.4-25.7); Calc. Creatinine Clearance 52 mL/min (70-130); Calcium 8.7 mg/dL (7.8-10.44); Carbon Dioxide 25 mmol/L (23-31); Chloride 105 mmol/L (98-107); Estimated GFR-MDRD 43; Glucose 126 mg/dL (83-110); Sodium 137 mmol/L (136-145)
--- NOTE | 2018-02-15 18:16 | PRG-2 ---
DATE OF SERVICE: 02/15/2018 REFERRING PHYSICIAN: Dr. Eliecer Acosta. RESIDENT: Rayo Kolb DO. SUBJECTIVE: The patient has been threatening to leave overnight due to his unsteady gait. He was gi meenu a himself. Patient also was uncooperative with physical therapy and occupational therapy. Per case management, the patient's son is driving from [place] and should be here tonight. We anthony l discuss discharge plans with him tomorrow morning. The patient has no complaints otherwise. OBJECTIVE: VITAL SIGNS: Temperature 98.0, pulse 81, respirations 16, pulse ox 95 on room air, and blood pressur e 127/68. GENERAL: The patient is sitting in a chair, eating breakfast in no acute distress. HEENT: Patient has a contusion on forehead as well as bandage over nose, normocephalic. CARDIOVASCULAR: Irregularly irregular, no murmurs. LUNGS: Clear to auscultation bilaterally. ABDOMEN: No pain to palpation. Bowel sounds present. EXTREMITIES: Pulses are present in all 4 extremities, 2+, patient moving all 4 extremities. NEUROLOGIC: Grossly intact. GCS remained 15 overnight. LABORATORY DATA: 1. The patient refused lab draws. 2. Radiologic findings none to review today. ASSESSMENT: 1. Status post unwitnessed fall approximately 3 hours downtime. 2. Hemorrhagic shock, stable. 3. Acute blood loss anemia, hemoglobin stable. 4. . 5. Severe metabolic acidosis, stable. 6. Lactic acidosis, stable. 7. Acute renal failure, creatinine is trending down. 8. Chronic alcohol abuse. 9. Tobacco abuse. 10. Atrial fibrillation with history of rapid ventricular response. 11. Coronary artery disease, history of percutaneous transluminal coronary angioplasty and coronary artery bypass. 12. Peripheral vascular disease. 13. History of hypertension. PLAN: The patient is stable. Trauma point of view, we will continue to encourage the patient to par ticipate with physical therapy and occupational therapy. The patient expresses desire to go home. S on is driving in from [place], discussed with him. Discharge options including rehab placement and group home placement. We will continue having a sitter available. Cardiology was consulted due t o elevated troponins and history of atrial fibrillation with rapid ventricular response. We discusse d plan with Dr. Calderon. Dr. Calderon is familiar with the patient and states that he has not wanted to grayson e any changes in the past. Discussed with Dr. Acosta, who has seen this patient and we have discussed their plan and treatment.
== END 2018-02-15 20:21 | disposition home or self-care (01) | DRG 923 ==
LOC: ERS 03:14 → CCU 05:13 → SJJU 02-14 16:10 → SURG A 02-14 19:55
PROVIDERS: ADMIT Surgery; ATTEND Surgery
PROC: 0HQ1XZZ Repair Face Skin, External Approach (ICD-10-PCS; principal; 2018-02-13)
DX: T79.4XXA Traumatic shock, initial encounter (principal); D62 Acute posthemorrhagic anemia; E87.2 Acidosis; N17.9 Acute kidney failure, unspecified; W19.XXXA Unspecified fall, initial encounter; E83.51 Hypocalcemia; F10.10 Alcohol abuse, uncomplicated; I48.91 Unspecified atrial fibrillation; I25.10 Atherosclerotic heart disease of native coronary artery without angina pectoris; Z95.1 Presence of aortocoronary bypass graft; Z95.5 Presence of coronary angioplasty implant and graft; I73.9 Peripheral vascular disease, unspecified; I10 Essential (primary) hypertension; S01.81XA Laceration without foreign body of other part of head, initial encounter
CPT/HCPCS: 36415; 36430; 70450; 70486; 71045; 72125; 72170; 80048; 80053; 80306; 80307; 81003; 81015; 82274; 82330; 82533; 82550; 82553; 82803; 82805; 83605; 83690; 83735; 83930; 84100; 84443; 84484; 85025; 85610; 85730; 86850; 86900; 86901; 93005; 93306; G0390; G8978-GP-CN; G8979-GP-CK; G8987-GO-CK; G8988-GO-CH; J0131; J2001; J2405; J7070; P9016; P9035; P9045